=== PATIENT | female | born 1970 | race Two or more races ===

== ENCOUNTER 2016-12-31 10:28 | Emergency (ER) | payer OTHER ==
[2016-12-31 12:15] VITALS: BP 117/64
[2016-12-31 12:59] LABS: OBC FLU VALID
--- NOTE | 2016-12-31 13:35 | PHYS DOC ---
Past Medical History Past Medical History: Depression Past Surgical History: Cholecystectomy Smoking: Less than 1pk/day Alcohol Use: Occasionally Drug Use: None Adult General Chief Complaint Chief Complaint: Congestion HPI HPI Patient is a 46 year old female who presents with productive cough and subjective fever last 4 days. Reports frontal headache with nasal congestion, sore throat, and body aches. She denies shortness of breath or ear pain. She's been taking TheraFlu for her symptoms without relief. She did not receive a flu shot this season. Her PCP is Dr. Mccullough. Review of Systems Review of Systems Constitutional: Reports subjective fever. Eyes: Denies change in visual acuity, redness, or eye pain. [] HENT: Denies ear pain. Reports nasal congestion and sore throat. Respiratory: Denies shortness of breath. Reports productive cough. Cardiovascular: Denies chest pain, palpitations or edema. [] GI: Denies abdominal pain, nausea, vomiting, bloody stools or diarrhea. [] Musculoskeletal: Denies back pain or joint pain. Reports diffuse myalgias. Integument: Denies rash or skin lesions. [] Neurologic: Denies focal weakness or sensory changes. Reports frontal headache. All systems reviewed and negative unless otherwise stated in the HPI. Physical Exam Physical Exam Constitutional: Well developed, well nourished, no acute distress, non-toxic appearance. [] HENT: Normocephalic, atraumatic, bilateral external ears normal, oropharynx moist, no oral exudates, nose normal. Bilateral TMs without erythema or bulging. There is no posterior pharyngeal erythema or tonsillar edema. Bilateral nasal turbinates are swollen and erythematous with purulent drainage. Eyes: PERRLA, EOMI, conjunctiva normal, no discharge. [] Neck: Normal range of motion, no tenderness, supple, no stridor. [] Cardiovascular: Heart rate regular rhythm, no murmur [] Lungs & Thorax: Bilateral breath sounds clear to auscultation without wheezes, rales, or rhonchi. Skin: Warm, dry, no erythema, no rash. [] Neurologic: Alert and oriented X 3, normal motor function, normal sensory function, no focal deficits noted. [] Psychologic: Affect normal, judgement normal, mood normal. [] Current Patient Data Vital Signs Vital Signs Date Time Temp Pulse Resp B/P Pulse Ox O2 Delivery O2 Flow Rate FiO2 2/13/17 12:15 98.6 97 12 98 Room Air 98.6 Lab Values Laboratory Tests Test 12/31/16 12:20 Influenza Type A Antigen Positive (NEGATIVE) Influenza Type B Antigen Negative (NEGATIVE) EKG EKG [] Radiology/Procedures Radiology/Procedures [] Course & Med Decision Making Course & Med Decision Making Pertinent Labs and Imaging studies reviewed. (See chart for details) [] Dragon Disclaimer Dragon Disclaimer This electronic medical record was generated, in whole or in part, using a voice recognition dictation system. Departure Departure Impression: Primary Impression: Influenza A Disposition: HOME, SELF-CARE Condition: STABLE Referrals: VENKAT MCCULLOUGH MD (PCP) Patient Instructions: Influenza, Adult, [id number] Additional Instructions: You tested positive for influenza A. This is a viral infection and antibiotics do not help. Please take Tylenol and ibuprofen as needed for fever and pain. Use according to package instructions. Please drink was water to stay hydrated and get plenty of rest. Please stay home from work for the rest of the week to avoid infecting others. Return to the emergency department if you have high fever not on any medication , difficulty breathing, or other new or concerning symptoms. HEIDI COELHO Dec 31, 2016 13:35
== END 2016-12-31 13:43 | disposition home or self-care (01) ==
LOC: ER 10:28
DX: J09.X2 Influenza due to identified novel influenza A virus with other respiratory manifestations (principal); F32.9 Major depressive disorder, single episode, unspecified; F17.200 Nicotine dependence, unspecified, uncomplicated; Z90.49 Acquired absence of other specified parts of digestive tract
CPT/HCPCS: 87804; 99284

== ENCOUNTER 2017-01-11 09:44 | Emergency (ER) | payer OTHER ==
[~2017-01-11] VITALS: Ht 157.5 cm; Wt 72.6 kg
[2017-01-11 10:18] VITALS: BP 127/77
--- NOTE | 2017-01-11 10:57 | RAD ---
Chest, 2 views, 01/11/2017: History: Cough, back pain The heart size and pulmonary vascularity are normal. No pulmonary infiltrates are seen. There is no evidence of pleural fluid. There is a minimal thoracic scoliosis. IMPRESSION: No acute cardiopulmonary abnormality is detected.
--- NOTE | 2017-01-11 11:19 | PHYS DOC ---
Past Medical History Past Medical History: Depression Past Surgical History: Cholecystectomy Alcohol Use: Occasionally Drug Use: None Adult General Chief Complaint Chief Complaint: LOWER BACK PAIN OR INJURY [employer] HPI Patient is a 46 year old female presents emergency room the complaint of mid back pain for approximately 4 days that she attributes to coughing. Patient was seen last week at this facility and diagnosed with influenza. She states that she's had persistent coughing since that period of time and the pain is aggravated when she coughs. She denies any shortness of breath. She denies any flank pain, dysuria or hematuria. She currently denies any fevers or chills. Review of Systems Review of Systems Constitutional: Denies fever or chills [] Eyes: Denies change in visual acuity, redness, or eye pain [] HENT: Denies nasal congestion or sore throat [] Respiratory: Denies cough or shortness of breath [] Cardiovascular: No additional information not addressed in HPI [] GI: Denies abdominal pain, nausea, vomiting, bloody stools or diarrhea [] : Denies dysuria or hematuria [] Musculoskeletal: Denies back pain or joint pain [] Integument: Denies rash or skin lesions [] Neurologic: Denies headache, focal weakness or sensory changes [] Endocrine: Denies polyuria or polydipsia [] Allergies Allergies Allergies Coded Allergies Type Severity Reaction Last Updated Verified No Known Drug Allergies 01/11/17 No Physical Exam Physical Exam Constitutional: Well developed, well nourished, no acute distress, non-toxic appearance. [] HENT: Normocephalic, atraumatic, bilateral external ears normal, oropharynx moist, no oral exudates, nose normal. [] Eyes: PERRLA, EOMI, conjunctiva normal, no discharge. [] Neck: Normal range of motion, no tenderness, supple, no stridor. [] Cardiovascular:Heart rate regular rhythm, no murmur [] Lungs & Thorax: There is no respiratory distress or respiratory fatigue. Lung sounds are clear to auscultation bilaterally. There is tenderness to palpation of the level of T6 and T7 in the posterior lateral chest wall. There is no palpable defect, deformity, instability or crepitus. There is no flail segment. Patient demonstrates full chest excursion with inspiration. Abdomen: Bowel sounds normal, soft, no tenderness, no masses, no pulsatile masses. [] Skin: Warm, dry, no erythema, no rash. [] Back: No tenderness, no CVA tenderness. [] Extremities: No tenderness, no cyanosis, no clubbing, ROM intact, no edema. [] Neurologic: Alert and oriented X 3, normal motor function, normal sensory function, no focal deficits noted. [] Psychologic: Affect normal, judgement normal, mood normal. [] Current Patient Data Vital Signs Vital Signs Date Time Temp Pulse Resp B/P Pulse Ox O2 Delivery O2 Flow Rate FiO2 01/11/17 10:18 97.9 82 16 127/77 98 97.9 EKG EKG [] Radiology/Procedures Radiology/Procedures [ [address] [place] [address] IMAGING REPORT Signed PATIENT: YAIMA COSTA ACCOUNT: [id number] : 1970 LOCATION: ER AGE: 46 SEX: F EXAM STATUS: PRE ER ORD. PHYSICIAN: CHAS TORRES REASON: cough, midback pain PROCEDURE: CHEST PA & LATERAL Chest, 2 views, 01/11/2017: History: Cough, back pain The heart size and pulmonary vascularity are normal. No pulmonary infiltrates are seen. There is no evidence of pleural fluid. There is a minimal thoracic scoliosis. IMPRESSION: No acute cardiopulmonary abnormality is detected. DICTATED and SIGNED BY: HAN JOHNSON MD DATE: 01/11/17 1054 CC: CHAS TORRES; VENKAT MCCULLOUGH MD ~ Course & Med Decision Making Course & Med Decision Making Patient requested a shot in her back to help with pain. I explained to the patient is not feasible will not be done in the emergency department due to the risk. Dragon Disclaimer Dragon Disclaimer This electronic medical record was generated, in whole or in part, using a voice recognition dictation system. Departure Departure Impression: Primary Impression: Chest wall muscle strain Disposition: 01 HOME, SELF-CARE Condition: GOOD Referrals: VENKAT MCCULLOUGH MD (PCP) Patient Instructions: Chest Wall Pain, [id number] Additional Instructions: 1. The x-rays of your chest today show no broken ribs, collapsed lung or pneumonia. 2. Take the medication as prescribed. 3. Contact your primary care doctor's office Saturday to schedule follow-up appointment if there are any questions or concerns. Scripts Hydrocodone/Chlorphen Polis (Tussionex Pennkinetic Susp)480 Ml [id number] Ml PO BID PRN COUGH #120 ML Prov:CHAS TORRES 01/11/17 CHAS TORRES Jan 11, 2017 11:19
[2017-01-11] MEDS ORDERED: HYDR115S2 PO (11:36)
== END 2017-01-11 11:47 | disposition home or self-care (01) ==
LOC: ER 09:44
DX: S29.011A Strain of muscle and tendon of front wall of thorax, initial encounter (principal); F32.9 Major depressive disorder, single episode, unspecified; Z90.49 Acquired absence of other specified parts of digestive tract; X58.XXXA Exposure to other specified factors, initial encounter; Y93.89 Activity, other specified; Y99.8 Other external cause status; Y92.89 Other specified places as the place of occurrence of the external cause
CPT/HCPCS: 71020; 99284

== ENCOUNTER 2017-09-04 16:38 | Emergency (ER) | payer SELFPAY ==
[~2017-09-04] VITALS: Ht 157.5 cm; Wt 68.0 kg
[2017-09-04 16:38] VITALS: BP 144/87
[~2017-09-04 16:38] MED LIST: HYDR115S2 PO
[2017-09-04] MEDS ORDERED: IBUPROFEN 800 MG TABLET. PO ONE (17:15)
[2017-09-04] MEDS ORDERED: IBUP-1060 PO (17:48)
[2017-09-04] MEDS ORDERED: CYCL10TA2 PO (17:48)
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
== END 2017-09-04 18:08 | disposition home or self-care (01) ==
LOC: ER 16:38
DX: R07.81 Pleurodynia (principal); M54.9 Dorsalgia, unspecified; F41.9 Anxiety disorder, unspecified; F32.9 Major depressive disorder, single episode, unspecified; V43.52XA Car driver injured in collision with other type car in traffic accident, initial encounter; Y93.I9 Activity, other involving external motion; Y92.410 Unspecified street and highway as the place of occurrence of the external cause; Y99.8 Other external cause status
CPT/HCPCS: 71101; 99284-25